=== PATIENT | male | born 1950 | race Caucasian/White ===

== ENCOUNTER 2020-06-30 17:33 | Inpatient (IN) | payer MEDICARE, BC ==
[2020-06-30] MEDS ORDERED: Sodium Chloride 0.9% 10 ML Syringe FLUSH PRN (17:38)
[2020-06-30] MEDS ORDERED: Furosemide 40 MG/4 ML VIAL IVPUSH ONE (17:53)
[2020-06-30 19:28] LABS: PCO2 ARTERIAL,POC 29 mmHg (35-48)
[2020-06-30 20:15] LABS: ANION GAP 19.9 mmol/L (5-15)
[2020-06-30] MEDS ORDERED: 50% Dextrose in Water 50 ML Syringe IV PRN (20:23)
[2020-06-30] MEDS ORDERED: Glucagon,Human Recombinant 1 MG Vial IM PRN (20:23)
[2020-06-30] MEDS ORDERED: Gabapentin 300 MG Cap ** OWN MED PO SCH (21:00)
[2020-06-30] MEDS ORDERED: INSULIN GLARGINE HUMAN REC ANALOG 100 UNIT/ML SUBCUT SCH (21:00)
[2020-06-30] MEDS: INSULIN ASPART 100 UNIT/ML SUBCUT SCH (21:41)
[2020-06-30] MEDS: TERAZOSIN 2 MG PO SCH (21:42)
[2020-07-01] MEDS ORDERED: Levothyroxine 50 MCG Tab ** OWN MED PO SCH (07:30)
[2020-07-01] MEDS ORDERED: Omeprazole 20 MG Cap.CR PO SCH (07:30)
[2020-07-01] MEDS: INSULIN ASPART 100 UNIT/ML SUBCUT SCH ×2 (07:51→08:29)
[2020-07-01 08:06] LABS: ANION GAP 16.7 mmol/L (5-15)
[2020-07-01] MEDS: TERAZOSIN 2 MG PO SCH (08:31)
[2020-07-01] MEDS ORDERED: ALLOPURINOL 100 MG PO SCH (09:00)
[2020-07-01] MEDS ORDERED: DILTIAZEM 120 MG PO SCH (09:00)
[2020-07-01] MEDS ORDERED: METOLAZONE 5 MG PO SCH (09:00)
[2020-07-01] MEDS ORDERED: Aspirin 81 MG Tab.EC PO SCH (09:00)
[2020-07-01] MEDS ORDERED: FINASTERIDE 5 MG PO SCH (09:00)
[2020-07-01] MEDS ORDERED: AMLODIPINE 10 MG PO SCH (09:00)
[2020-07-01] MEDS ORDERED: Fluticasone Propionate Nasal Spray 16 GM Bottle NASBOTH SCH (09:00)
[2020-07-01] MEDS ORDERED: Furosemide 40 MG Tab PO ONE (12:00)
[2020-07-01] MEDS ORDERED: atorvaSTATin 40 MG Tab **OWN MED PO SCH (21:00)
--- NOTE | 2020-07-02 22:33 | PCM.DCSUM1 ---
Discharge Summary - Discharge Data Discharge Date: 07/01/20 Discharge Disposition: Home, Self-Care 01 Condition: Good - Referral to Home Health Primary Care Physician: Monika Jackson MD - Patient Instructions Diet: Renal Diet Activity: As Tolerated - Discharge Plan *PRESCRIPTION DRUG MONITORING PROGRAM REVIEWED*: Not Applicable *COPY OF PRESCRIPTION DRUG MONITORING REPORT IN PATIENT LEAH: Not Applicable Home Medications: Home Meds Allopurinol [Zyloprim] 150 mg PO DAILY 06/30/20 [History] Aspirin [Aspirin EC] 81 mg PO DAILY 06/30/20 [History] Cholecalciferol (Vitamin D3) [Vitamin D3] 4,000 unit PO DAILY 06/30/20 [History] Cyclobenzaprine [Flexeril] 5 mg PO TID PRN 06/30/20 [History] Eplerenone [Inspra] 50 mg PO BID 06/30/20 [History] Finasteride [Proscar] 5 mg PO DAILY 06/30/20 [History] Fluticasone Propionate [Flonase] 1 spray NASBOTH DAILY 06/30/20 [History] Furosemide [Lasix] 80 mg PO DAILY 06/30/20 [History] Gabapentin [Neurontin] 300 mg PO BEDTIME 06/30/20 [History] Insulin Aspart [NovoLOG] 15 - 20 unit SUBCUT TID 06/30/20 [History] Insulin Glargine,Hum.Rec.Anlog [Lantus Solostar] 50 unit SQ BEDTIME 06/30/20 [History] Levothyroxine [Synthroid] 50 mcg PO ACBREAKFAST 06/30/20 [History] Omeprazole 20 mg PO DAILY 06/30/20 [History] Terazosin [Hytrin] 6 mg PO BID 06/30/20 [History] amLODIPine [Norvasc] 10 mg PO DAILY 06/30/20 [History] atorvaSTATin [Lipitor] 40 mg PO BEDTIME 06/30/20 [History] dilTIAZem HCL [Diltiazem 24Hr ER (Cd)] 120 mg PO DAILY 06/30/20 [History] metOLazone [Metolazone] 5 mg PO WEEKLY 06/30/20 [History] Referrals: Monika Jackson MD [Primary Care Provider] - 07/03/20 2:45 pm (come 1 hour prior to appointment for labs) - Discharge Summary/Plan Comment DC Time >30 min.: Yes - General Info Date of Service: 07/01/20 - Patient Data Vitals - Most Recent: Last Vital Signs Temp 37.0 C 07/01/20 06:04 Pulse 52 L 07/01/20 08:25 Resp 20 07/01/20 06:04 BP 164/65 H 07/01/20 08:25 Pulse Ox 92 L 07/01/20 06:04 Weight - Most Recent: 118.388 kg Med Orders - Current: Current Medications Discontinued Medications Allopurinol (Zyloprim) 150 mg PO DAILY [facility] Last Admin: 07/01/20 08:25 Dose: 150 mg Documented by: Aspirin (Halfprin) 81 mg PO DAILY [facility] Last Admin: 07/01/20 08:25 Dose: 81 mg Documented by: Atorvastatin Calcium (Lipitor) 40 mg PO BEDTIME [facility] Dextrose/Water (Dextrose 50% In Water) 50 ml IV ASDIRECTED PRN PRN Reason: Hypoglycemia Diltiazem HCl (Cardizem Cd) 120 mg PO DAILY [facility] Last Admin: 07/01/20 08:25 Dose: 120 mg Documented by: Finasteride (Proscar) 5 mg PO DAILY [facility] Last Admin: 07/01/20 08:25 Dose: 5 mg Documented by: Fluticasone Propionate (Flonase) 0 gm NASBOTH DAILY [facility] Last Admin: 07/01/20 08:24 Dose: 1 spray Documented by: Furosemide (Lasix) 40 mg IVPUSH NOW ONE Stop: 06/30/20 17:54 Last Admin: 06/30/20 18:54 Dose: 40 mg Documented by: Furosemide (Lasix) 80 mg PO ONETIME ONE Stop: 07/01/20 12:01 Last Admin: 07/01/20 12:28 Dose: 80 mg Documented by: Gabapentin (Neurontin) 300 mg PO BEDTIME [facility] Last Admin: 06/30/20 21:44 Dose: 300 mg Documented by: Glucagon (Glucagen) 1 mg IM ASDIRECTED PRN PRN Reason: Hypoglycemia Insulin Aspart (Novolog) 15 - 20 unit SUBCUT TID [facility] Last Admin: 07/01/20 08:29 Dose: Not Given Documented by: Insulin Glargine (Lantus Solostar) 50 units SUBCUT BEDTIME [facility] Last Admin: 06/30/20 21:36 Dose: Not Given Documented by: Levothyroxine Sodium (Synthroid) 50 mcg PO ACBREAKFAST [facility] Last Admin: 07/01/20 07:45 Dose: 50 mcg Documented by: Amlodipine [Norvasc] (10mg Own Med ) 10 mg PO DAILY [facility] Last Admin: 07/01/20 08:28 Dose: 10 mg Documented by: Metolazone [ Metolazone] 5mg Own Med 5 mg PO Sa@0900 [facility] Last Admin: 07/01/20 08:28 Dose: 5 mg Documented by: Terazosin 2mg Cap (Own Med ) 6 mg PO BID [facility] Last Admin: 07/01/20 08:31 Dose: 6 mg Documented by: Omeprazole (Omeprazole) 20 mg PO ACBREAKFAST [facility] Last Admin: 07/01/20 07:45 Dose: 20 mg Documented by: Sodium Chloride (Saline Flush) 10 ml FLUSH Q8HR PRN PRN Reason: keep vein open
== END 2020-07-01 13:05 | disposition home or self-care (01) | DRG 641 ==
LOC: KA.MS 18:28 → UNDOADMIN 18:28 → UNDODISIN 07-01 13:05
PROVIDERS: ADMIT Nurse Practitioner Family; ATTEND Family Medicine
DX: E87.70 Fluid overload, unspecified (principal); N18.4 Chronic kidney disease, stage 4 (severe); I12.9 Hypertensive chronic kidney disease with stage 1 through stage 4 chronic kidney disease, or unspecified chronic kidney disease; E11.22 Type 2 diabetes mellitus with diabetic chronic kidney disease; I25.10 Atherosclerotic heart disease of native coronary artery without angina pectoris; E78.5 Hyperlipidemia, unspecified; K21.9 Gastro-esophageal reflux disease without esophagitis; K22.70 Barrett's esophagus without dysplasia; N40.0 Benign prostatic hyperplasia without lower urinary tract symptoms; E03.9 Hypothyroidism, unspecified; E11.42 Type 2 diabetes mellitus with diabetic polyneuropathy; E66.9 Obesity, unspecified; M10.9 Gout, unspecified; E55.9 Vitamin D deficiency, unspecified; E11.311 Type 2 diabetes mellitus with unspecified diabetic retinopathy with macular edema; G47.33 Obstructive sleep apnea (adult) (pediatric); E11.51 Type 2 diabetes mellitus with diabetic peripheral angiopathy without gangrene; D64.9 Anemia, unspecified; Z95.1 Presence of aortocoronary bypass graft; Z79.4 Long term (current) use of insulin; Z79.899 Other long term (current) drug therapy; Z79.890 Hormone replacement therapy; Z88.8 Allergy status to other drugs, medicaments and biological substances; Z79.82 Long term (current) use of aspirin; Z68.36 Body mass index [BMI] 36.0-36.9, adult
CPT/HCPCS: 36415; 36600; 80048; 80053; 82803; 83880; 84484; 85025; A9270-GY; J1940

== ENCOUNTER 2021-02-13 04:20 | Emergency (ER) | payer MEDICARE, BC ==
[2021-02-13] MEDS ORDERED: Sodium Chloride 0.9% 10 ML Syringe FLUSH PRN (05:06)
--- NOTE | 2021-02-13 05:06 | EDM.PDOC ---
ED HPI GENERAL MEDICAL PROBLEM - General Chief Complaint: Back Pain or Injury Stated Complaint: LOW BACK PAIN Time Seen by Provider: 02/13/21 04:35 Source of Information: Reports: Patient History Limitations: Reports: No Limitations - History of Present Illness INITIAL COMMENTS - FREE TEXT/NARRATIVE: 70 YO WM PRESENTS TO ER BY EMS COMPLAINING OF CHRONIC LOW BACK PAIN WHICH BEGAN TO WORSEN OVER THE LAST 4 DAYS. PT REPORTS HE WAS RECENTLY HOSPITALIZED FOR A REVERSAL OF HIS OSTOMY AND HAS BEEN MORE SEDENTARY SINCE THAT TIME. PT REPORTS PAIN HAS BEEN MORE DEBILITATING AND HE HAS REQUIRED MORE ASSISTANCE FROM HIS FAMILY FOR HIS ADL. PT DENIES WEAKNESS OF LOWER EXTREMITIES. PT REPORTS SOME PARAESTHESIAS TO HIS RIGHT LOWER EXTREMITY. 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 PT DENIES SADDLE ANESTHESIA. PT ABLE TO MOVE EXTREMITIES WITH MINIMAL DIFFICULTY. Onset Date: 02/09/21 Duration: Chronic, Getting Worse Location: Reports: Back Quality: Reports: Ache Severity: Moderate Improves with: Reports: Rest Worsens with: Reports: Movement Associated Symptoms: Reports: No Other Symptoms. Denies: Chest Pain, Fever/Chills, Malaise, Nausea/Vomiting, Shortness of Breath, Weakness - Related Data Allergies Allergy/AdvReac Type Severity Reaction Status Date / Time acetaminophen [From [place]] Allergy Hallucinati Verified 02/13/21 04:57 ons hydrocodone [From [place]] Allergy Hallucinati Verified 02/13/21 04:57 ons lisinopril Allergy Cough Verified 02/13/21 04:57 oxycodone Allergy Hallucinati Verified 02/13/21 04:57 ons Home Meds: Home Meds Aspirin [Aspirin EC] 81 mg PO DAILY 06/30/20 [History] Cholecalciferol (Vitamin D3) [Vitamin D3] 4,000 unit PO DAILY 06/30/20 [History] Cyclobenzaprine [Flexeril] 5 mg PO TID PRN 06/30/20 [History] Eplerenone [Inspra] 50 mg PO BID 06/30/20 [History] Finasteride [Proscar] 5 mg PO DAILY 06/30/20 [History] Fluticasone Propionate [Flonase] 1 spray NASBOTH DAILY 06/30/20 [History] Furosemide [Lasix] 80 mg PO DAILY 06/30/20 [History] Gabapentin [Neurontin] 300 mg PO BEDTIME 06/30/20 [History] Insulin Aspart [NovoLOG] 15 - 20 unit SUBCUT TID 06/30/20 [History] Insulin Glargine,Hum.Rec.Anlog [Lantus Solostar] 50 unit SQ BEDTIME 06/30/20 [History] Levothyroxine [Synthroid] 50 mcg PO ACBREAKFAST 06/30/20 [History] Omeprazole 20 mg PO DAILY 06/30/20 [History] Terazosin [Hytrin] 6 mg PO BID 06/30/20 [History] allopurinoL [Zyloprim] 150 mg PO DAILY 06/30/20 [History] amLODIPine [Norvasc] 10 mg PO DAILY 06/30/20 [History] atorvaSTATin [Lipitor] 40 mg PO BEDTIME 06/30/20 [History] dilTIAZem HCL [Diltiazem 24Hr ER (Cd)] 120 mg PO DAILY 06/30/20 [History] metOLazone [Metolazone] 5 mg PO WEEKLY 06/30/20 [History] Cyclobenzaprine [Flexeril] 10 mg PO TID PRN #15 tab 02/13/21 [Rx] traMADol [Ultram] 50 mg PO Q6H PRN #15 tab 02/13/21 [Rx] Past Medical History HEENT History: Reports: Hard of Hearing, Impaired Vision Cardiovascular History: Reports: Other (See Below) Other Cardiovascular History: open heart surgery 10 years ago Respiratory History: Reports: SOB Gastrointestinal History: Reports: Colon Polyp Genitourinary History: Reports: Diabetic Nephropathy, Renal Disease Musculoskeletal History: Reports: Arthritis, Back Pain, Chronic, Fracture, Gout Neurological History: Reports: None Psychiatric History: Reports: None Endocrine/Metabolic History: Reports: Diabetes, Type II, Hypothyroidism Hematologic History: Reports: None Immunologic History: Reports: None Oncologic (Cancer) History: Reports: None Dermatologic History: Reports: None - Infectious Disease History Infectious Disease History: Reports: Influenza - Past Surgical History HEENT Surgical History: Reports: Other (See Below) Other HEENT Surgeries/Procedures: monthly shots bilateral eyes due to diabetes Cardiovascular Surgical History: Reports: Coronary Artery Bypass Respiratory Surgical History: Reports: None GI Surgical History: Reports: Colonoscopy Male Surgical History: Reports: None Endocrine Surgical History: Reports: None Neurological Surgical History: Reports: Spinal Fusion Musculoskeletal Surgical History: Reports: Other (See Below) Other Musculoskeletal Surgeries/Procedures:: L4 vertabrae fusion Social & Family History - Family History HEENT: Reports: None Cardiac: Reports: [place] Respiratory: Reports: Other (See Below) Other Respiratory Family Hisory: emphysema GI: Reports: None : Reports: None OBGYN: Reports: None Musculoskeletal: Reports: Arthritis Neurological: Reports: None Psychiatric: Reports: None Endocrine/Metabolic: Reports: None Hematologic: Reports: None - Caffeine Use Caffeine Use: Reports: Soda ED ROS GENERAL - Review of Systems Review Of Systems: See Below Constitutional: Reports: No Symptoms HEENT: Reports: No Symptoms Respiratory: Reports: No Symptoms Cardiovascular: Reports: No Symptoms Endocrine: Reports: No Symptoms GI/Abdominal: Reports: No Symptoms : Reports: No Symptoms Musculoskeletal: Reports: Back Pain Skin: Reports: No Symptoms Neurological: Reports: No Symptoms Psychiatric: Reports: No Symptoms Hematologic/Lymphatic: Reports: No Symptoms Immunologic: Reports: No Symptoms ED EXAM,LOWER BACK PAIN/INJURY - Physical Exam Exam: See Below Exam Limited By: No Limitations General Appearance: Alert, WD/WN, No Apparent Distress Head: Atraumatic, Normocephalic Neck: Normal Inspection, Supple, Non-Tender, Full Range of Motion Respiratory/Chest: No Respiratory Distress, Lungs Clear, Normal Breath Sounds, No Accessory Muscle Use, Chest Non-Tender Cardiovascular: Normal Peripheral Pulses, Regular Rate, Rhythm, No Edema, No Gallop, No JVD, No Murmur, No Rub GI/Abdominal: Normal Bowel Sounds, Soft, Non-Tender, No Organomegaly, No Distention, No Abnormal Bruit, No Mass Back Exam: Muscle Spasm Extremities: Normal Inspection, Normal Range of Motion, Non-Tender, No Pedal Edema, Normal Capillary Refill Neurological: Alert, Normal Mood/Affect, Normal Dorsiflexion, CN II-XII Intact, Normal Plantar Flexion, Normal Reflexes, No Motor/Sensory Deficits, Oriented x 3, Straight Leg Raise (R). No: Straight Leg Raise (L), Saddle Anesthesia Course - Orders/Labs/Meds Orders: Active Orders 24 hr Category Date Time Status Peripheral IV Care [RC] . DIRECTED Care 02/13/21 05:07 Ordered Sodium Chloride 0.9% [Saline Flush] Med 02/13/21 05:06 Ordered 10 ml FLUSH Q8HR PRN Peripheral IV Insertion Adult [OM.PC] Routine Oth 02/13/21 05:06 Ordered Medication Orders Sodium Chloride (Sodium Chloride 0.9% 10 Ml Syringe) 10 ml FLUSH Q8HR PRN PRN Reason: keep vein open Meds: Medications Generic Name Dose Route Start Last Admin Trade Name Freq PRN Reason Stop Dose Admin Sodium Chloride 10 ml 02/13/21 05:06 Sodium Chloride 0.9% 10 Ml Syringe FLUSH Q8HR PRN keep vein open Discontinued Medications Generic Name Dose Route Start Last Admin Trade Name Freq PRN Reason Stop Dose Admin Diazepam 5 mg 02/13/21 05:06 02/13/21 05:45 Diazepam 10 Mg/2 Ml Syringe IVPUSH 02/13/21 05:07 5 mg ONETIME ONE Administration Ketorolac Tromethamine 30 mg 02/13/21 05:06 02/13/21 05:38 Ketorolac 30 Mg/Ml Sdv IVPUSH 02/13/21 05:07 30 mg ONETIME ONE Administration - Radiology Interpretation Free Text/Narrative:: PAIN IMPROVED AFTER TORADOL/VALIUM. PT ABLE TO SIT UP AND STAND WITH MINIMAL DIFFICULTY. PT ALERT AND ORIENTED X4 AND IN NAD. Departure - Departure Time of Disposition: 05:48 Disposition: Home, Self-Care 01 Condition: Fair Clinical Impression: Acute exacerbation of chronic low back pain - Discharge Information Prescriptions: Cyclobenzaprine [Flexeril] 10 mg PO TID PRN #15 tab PRN Reason: SPASMS traMADol [Ultram] 50 mg PO Q6H PRN #15 tab PRN Reason: Pain Instructions: Managing Pain Without Opioids, Chronic Back Pain Forms: ED Department Discharge Additional Instructions: 1. DISCHARGE HOME 2. HEAT TO BACK/STRETCHING 3. ULTRAM 50-100MG EVERY 6 HOURS NEEDED FOR PAIN 4. FLEXERIL 10MG EVERY 8 HOURS FOR MUSCLE SPASMS 5. FOLLOW UP IN CLINIC NEXT 24-48 HOURS FOR RECHECK AND CONSIDERATION FOR PHYSICAL THERAPY 6. RETURN TO ER FOR WORSENING SYMPTOMS - My Orders Last 24 Hours: My Active Orders 02/13/21 05:06 Sodium Chloride 0.9% [Saline Flush] 10 ml FLUSH Q8HR PRN Peripheral IV Insertion Adult [OM.PC] Routine 02/13/21 05:07 Peripheral IV Care [RC] . DIRECTED - Assessment/Plan Last 24 Hours: My Active Orders 02/13/21 05:06 Sodium Chloride 0.9% [Saline Flush] 10 ml FLUSH Q8HR PRN Peripheral IV Insertion Adult [OM.PC] Routine 02/13/21 05:07 Peripheral IV Care [RC] . DIRECTED Assessment:: 1. ACUTE ON CHRONIC LOW BACK PAIN Plan: 1. DISCHARGE HOME 2. HEAT TO BACK/STRETCHING 3. ULTRAM 50-100MG EVERY 6 HOURS NEEDED FOR PAIN 4. FLEXERIL 10MG EVERY 8 HOURS FOR MUSCLE SPASMS 5. FOLLOW UP IN CLINIC NEXT 24-48 HOURS FOR RECHECK AND CONSIDERATION FOR PHYSICAL THERAPY 6. RETURN TO ER FOR WORSENING SYMPTOMS
[2021-02-13] MEDS: Ketorolac 30 MG/ML SDV IVPUSH ONE (05:38)
== END 2021-02-13 08:10 | disposition home or self-care (01) ==
LOC: KA.ED 04:20
DX: G89.29 Other chronic pain (principal); M54.5 Low back pain; E03.9 Hypothyroidism, unspecified; E11.21 Type 2 diabetes mellitus with diabetic nephropathy; E11.22 Type 2 diabetes mellitus with diabetic chronic kidney disease; N18.9 Chronic kidney disease, unspecified; Z88.5 Allergy status to narcotic agent; Z88.8 Allergy status to other drugs, medicaments and biological substances; Z79.82 Long term (current) use of aspirin; Z79.4 Long term (current) use of insulin; Z79.899 Other long term (current) drug therapy
CPT/HCPCS: 96374; 96375; 99283; 99284-25; J1885; J3360